=== PATIENT | female | born 1995 | race Caucasian/White ===

== ENCOUNTER 2017-01-02 04:21 | Inpatient (IN) ==
[2017-01-02] MEDS ORDERED: MAG-AL + SIM ORAL LIQUID 30ml PO PRN (06:20)
[2017-01-02] MEDS ORDERED: CALCIUM CARBONATE Chewable 500mg TABLET PO PRN (06:20)
[2017-01-02] MEDS ORDERED: CARBOPROST 250 MCG/ML INJECTION IM PRN (06:20)
[2017-01-02] MEDS ORDERED: OXYTOCIN DRIP 30 UNIT/500 ML ML IV PRN (06:20)
[2017-01-02] MEDS ORDERED: LIDOCAINE 1% (10mg/ml) 2mL INJ PF SDV ID PRN (06:20)
[2017-01-02] MEDS ORDERED: METHYLERGONOVINE 0.2 MG/ML INJECTION IM PRN (06:20)
[2017-01-02] MEDS ORDERED: ACETAMINOPHEN 500 MG TABLET PO PRN (06:20)
[2017-01-02] MEDS: LR 1,000 ML IV PRN ×2 (06:30→12:42)
[2017-01-02 07:00] VITALS: BP 118/70; PULSE 71; RESP 16; TEMP 98.8; O2SAT 99
[2017-01-02] MEDS: D5LR 1,000 ML IV PRN ×2 (07:13→15:39)
[2017-01-02 07:17] VITALS: BMI 32.1
--- NOTE | 2017-01-02 09:11 | Anesthesia Preoperative Report ---
Anesthesia Epidural/Spinal Rec - Date and Time Date: 01/02/17 Preoperative Diagnosis: term induction Procedure: Labor Epidural Plan: Epidural - Vital Signs Vital Signs: Temperature 98.8 F 01/02/17 06:30 Pulse Rate 71 01/02/17 06:30 Respiratory Rate 16 01/02/17 06:30 Blood Pressure 118/70 01/02/17 06:30 Pulse Oximetry 99 01/02/17 06:30 Oxygen Delivery Method Room Air /Para: P:0 Heart Rate: 150 - Medictaions & Allergies Inpatient Medications: Current Medications Acetaminophen (Tylenol) 500 - 1,000 mg PO Q4H PRN PRN Reason: Pain Al Hydroxide/Mg Hydroxide (Maalox Plus) 30 ml PO Q3H PRN PRN Reason: Indigestion Calcium Carbonate (Tums) 500 - 1,000 mg PO Q2H PRN PRN Reason: Indigestion Carboprost Tromethamine (Hemabate) 250 mcg IM O PRN PRN Reason: .Downtime Dextrose/Lactated Ringer's (Dextrose 5%-Lactated Ringers) 1,000 mls @ 125 mls/ hr IV .Q8H PRN PRN Reason: Labor Last Admin: 01/02/17 07:13 Dose: 125 mls/hr Lactated Ringer's (Lactated Ringers) 1,000 mls @ 1,000 mls/hr IV .Q1H PRN PRN Reason: as directed Last Admin: 01/02/17 06:30 Dose: 1,000 mls/hr Oxytocin (Pitocin Drip) 30 unit in 500 mls @ 2 mls/hr IV .Q24H PRN; Protocol PRN Reason: Induction/Augmentation Last Admin: 01/02/17 07:00 Dose: 2 mls/hr Lidocaine HCl (Xylocaine-Mpf 1% Vial) 0.2 mg ID O PRN PRN Reason: IV Start Methylergonovine Maleate (Methergine) 0.2 mg IM O PRN Misoprostol (Cytotec) 800 mcg IN ONCE PRN Allergies/Adverse Reactions: Allergies Allergy/AdvReac Type Severity Reaction Status Date / Time diphenhydramine Allergy Mild Hives Verified 12/16/16 10:50 Penicillins Allergy Mild Hives Verified 12/16/16 10:50 - Home Medications Home Medications: Home Medications Medication Instructions Recorded Confirmed Type Vitamins 12/16/16 History - Medical History Respiratory: Reports: Asthma (exercise induced) Other History: Reports: Now - Surgical History Anesthesia Reactions: None Hx Family Anesthesia Reaction: No History of Motion Sickness: No - Social History Smoking Status: Never smoker Second Hand Exposure: No Substance Use Type: does not use Alcohol Intake: never Alcohol Intake Frequency: does not drink Hx Chewing Tobacco Use: No - Pertinent Findings Lab Data: CBC and BMP 01/02/17 06:34 - Physical Exam Respiratory Exam: lungs clear, bilateral breath sounds equal Cardiovascular Exam: regular rate and rhythm, no murmur - Airway Assessment Mallampati Score: I TMD: 3 Fingerbreadths Neck Extension: good Overall Assessment: may be difficult intubation - ASA ASA Score: 2 - Discussion Discussion: Discussed risks/options/alternatives of anesthesia and questions answered. Patient consents. Nursing pain assessment noted. Attestation Statement: Prior to the delivery of any anesthetic medication, I examined the patient, developed the plan, obtained the patient's consent and discussed the risk and benefits of the procedure with the patient/guardian.
--- NOTE | 2017-01-02 16:28 | Progress Note ---
OB PP Progress Note Free Text - Date Date: 01/02/17 - Progress Note Progress Note: Cervix remains unchanged. I have been unable to AROM, unable to place Ascencio bulb for cervical ripening. FHTs remain reactive. We've discussed the options at this point. We can either continue oxytocin induction or stop and await spontaneous labor. If no change after 12 hours of induction, I would plan to stop and send her home. Pt has decided to go home now. Will follow in the office next week. Precautions reviewed.
--- NOTE | 2017-01-02 16:30 | Discharge Instructions ---
Discharge Plan - Med Rec/Dispo Prescriptions: No Action Vitamins - Disposition 01 Discharged Home, Self-Care
== END 2017-01-02 17:41 | disposition home or self-care (01) | DRG 782 ==
LOC: MC 06:15 → UNDODISIN 17:02
PROVIDERS: ADMIT Obstetrics & Gynecology; ATTEND Obstetrics & Gynecology

== ENCOUNTER 2017-01-11 17:08 | Inpatient (IN) ==
[2017-01-11] MEDS ORDERED: MAG-AL + SIM ORAL LIQUID 30ml PO PRN ×2 (17:22→22:30)
[2017-01-11] MEDS ORDERED: METHYLERGONOVINE 0.2 MG/ML INJECTION IM PRN ×2 (17:22→22:30)
[2017-01-11] MEDS ORDERED: CARBOPROST 250 MCG/ML INJECTION IM PRN ×2 (17:22→22:30)
[2017-01-11] MEDS ORDERED: DINOPROSTONE 10 MG VAGINAL INSERT VG ONE (17:22)
[2017-01-11] MEDS ORDERED: ACETAMINOPHEN 500 MG TABLET PO PRN ×2 (17:22→22:30)
[2017-01-11] MEDS ORDERED: SALINE FLUSH 10ml SYRINGE IVF PRN (17:22)
[2017-01-11] MEDS ORDERED: CALCIUM CARBONATE Chewable 500mg TABLET PO PRN ×2 (17:22→22:30)
[2017-01-11] MEDS ORDERED: TERBUTALINE 1 MG/ML VIAL SQ PRN (17:22)
[2017-01-11 17:45] VITALS: BMI 70.4
[2017-01-11] MEDS: NALBUPHINE 10 MG/ML INJECTION IVP PRN (22:44)
[2017-01-11] MEDS: LR 1,000 ML IV PRN (22:45)
[2017-01-12] MEDS: LR 1,000 ML IV PRN ×2 (01:46→04:00)
[2017-01-12 01:51] VITALS: RESP 16
[2017-01-12] MEDS: NALBUPHINE 10 MG/ML INJECTION IVP PRN (01:59)
[2017-01-12] MEDS ORDERED: D5LR 1,000 ML IV PRN (06:00)
[2017-01-12] MEDS ORDERED: ROPIVACAINE 1% 10MG/ML INJ 200 MG, SUFentanil 50 MCG in NS 80 ML EPI PRN (06:00)
[2017-01-12] MEDS ORDERED: OXYTOCIN DRIP 30 UNIT/500 ML ML IV PRN (06:00)
--- NOTE | 2017-01-12 06:43 | Anesthesia Preoperative Report ---
Anesthesia Epidural/Spinal Rec - Date and Time Date: 01/12/17 Procedure: Labor Epidural Plan: Epidural - Vital Signs Vital Signs: Temperature 97.7 F 01/12/17 00:00 Pulse Rate 78 01/12/17 00:00 Respiratory Rate 16 01/12/17 00:00 Blood Pressure 108/61 01/12/17 00:00 Pulse Oximetry 98 01/12/17 00:00 Oxygen Delivery Method Room Air /Para: P:0 - Medictaions & Allergies Inpatient Medications: Current Medications Acetaminophen (Tylenol) 500 - 1,000 mg PO Q4H PRN PRN Reason: Pain Al Hydroxide/Mg Hydroxide (Maalox Plus) 30 ml PO Q3H PRN PRN Reason: Indigestion Calcium Carbonate (Tums) 500 - 1,000 mg PO Q2H PRN PRN Reason: Indigestion Carboprost Tromethamine (Hemabate) 250 mcg IM O PRN PRN Reason: .Downtime Lactated Ringer's (Lactated Ringers) 1,000 mls @ 1,000 mls/hr IV .Q1H PRN PRN Reason: as directed Last Admin: 01/12/17 01:46 Dose: 1,000 mls/hr Dextrose/Lactated Ringer's (Dextrose 5%-Lactated Ringers) 1,000 mls @ 125 mls/ hr IV .Q8H PRN PRN Reason: Labor Oxytocin (Pitocin Drip) 30 unit in 500 mls @ 2 mls/hr IV .Q24H PRN; Protocol PRN Reason: Induction/Augmentation Methylergonovine Maleate (Methergine) 0.2 mg IM O PRN Misoprostol (Cytotec) 800 mcg AL ONCE PRN Nalbuphine HCl (Nubain) 5 - 10 mg IVP Q1H PRN Last Admin: 01/12/17 01:59 Dose: 10 mg Sodium Chloride (Iv Flush) 10 - 80 ml IVF PRN PRN PRN Reason: Flushing Last Admin: 01/11/17 18:00 Dose: 10 ml Terbutaline Sulfate (Brethine) 0.25 mg SQ PRN PRN Allergies/Adverse Reactions: Allergies Allergy/AdvReac Type Severity Reaction Status Date / Time diphenhydramine Allergy Mild Hives Verified 12/16/16 10:50 Penicillins Allergy Mild Hives Verified 12/16/16 10:50 - Home Medications Home Medications: Home Medications Medication Instructions Recorded Confirmed Type Vitamins 12/16/16 History - Medical History Gastrointestional: Reports: Morbid Obesity (obese) - Surgical History Anesthesia Reactions: None Hx Family Anesthesia Reaction: No History of Motion Sickness: No - Social History Second Hand Exposure: No Substance Use Type: does not use Alcohol Intake Frequency: does not drink Hx Chewing Tobacco Use: No - Pertinent Findings Lab Data: CBC and BMP 01/11/17 17:39 - Physical Exam Respiratory Exam: lungs clear Cardiovascular Exam: regular rate and rhythm - Airway Assessment Mallampati Score: I TMD: 3 Fingerbreadths Neck Extension: good Overall Assessment: no airway concerns - ASA ASA Score: 2 - Discussion Discussion: Discussed risks/options/alternatives of anesthesia and questions answered. Patient consents. Nursing pain assessment noted. Anesthesia Discussion: family member Attestation Statement: Prior to the delivery of any anesthetic medication, I examined the patient, developed the plan, obtained the patient's consent and discussed the risk and benefits of the procedure with the patient/guardian.
[2017-01-12] MEDS ORDERED: TRANEXAMIC ACID 1,000 MG in NS 100 ML IV ONE (07:44)
[2017-01-12] MEDS ORDERED: CLINDAMYCIN PB 900 MG/50 ML BAG IV SCH (08:15)
[2017-01-12] MEDS ORDERED: ONDANSETRON 4 MG/2 ML INJECTION IVP PRN (08:26)
[2017-01-12] MEDS ORDERED: OXYTOCIN DRIP 30 UNIT/500 ML ML IV SCH (08:39)
[2017-01-12] MEDS ORDERED: SALINE FLUSH 10ml SYRINGE IVF PRN (08:39)
[2017-01-12] MEDS ORDERED: DiphenhydrAMINE 25 MG CAPSULE PO PRN (08:39)
[2017-01-12] MEDS ORDERED: ACETAMINOPHEN 500 MG TABLET PO PRN (08:39)
[2017-01-12] MEDS ORDERED: MAG-AL + SIM ORAL LIQUID 30ml PO PRN (08:39)
[2017-01-12] MEDS ORDERED: CALCIUM CARBONATE Chewable 500mg TABLET PO PRN (08:39)
[2017-01-12] MEDS ORDERED: HYDROCORTISONE 2.5% CREAM 30gm RECTALLY PRN (08:39)
[2017-01-12] MEDS: IBUPROFEN 800 MG TABLET PO SCH ×2 (09:45→17:27)
[2017-01-12] MEDS: DOCUSATE CALCIUM 240 MG CAPSULE PO SCH (09:46)
--- NOTE | 2017-01-12 14:38 | Anesthesia Postoperative Note ---
- Date and Time Date: 01/12/17 Time: 14:37 - Status Patient Participated in Evaluation: Patient Participated in Person Vital Signs: Temperature 97.7 F 01/12/17 00:00 Pulse Rate 78 01/12/17 00:00 Respiratory Rate 16 01/12/17 00:00 Blood Pressure 108/61 01/12/17 00:00 Pulse Oximetry 98 01/12/17 00:00 Oxygen Delivery Method Room Air Respiratory Function: Airway Patent, Irregular Respirations Cardiovascular Function: Regular Pulse EKG Rhythm: Normal Sinus Rhythm Mental Status: Alert and Oriented Pain Intensity: 0 Hydration: Taking PO Fluids Complications During Recover: None Apparent - Follow-Up Instructions Instructions: Per Surgeon
--- NOTE | 2017-01-12 14:50 | Labor and Delivery Note ---
Date of Delivery: 01/12/2017 BRIEF DESCRIPTION Ms. Miller progressed very well with Cervidil cervical ripening. She began to push with excellent effort. heart tones were not reactive. She began to develop repetitive late decelerations. Dr. Cruz had been with her in labor and then I took over as soon as I arrived. She was complete and +2 at that time. Baby recovered nicely between contractions. However, she began to have worsening decels. At this point I recommended we use the vacuum extractor to help with delivery. We reviewed the risks of that and patient agreed to the procedure. She was complete, +3 when the vacuum was applied. Over the course of one pull and one contraction she delivered the head in the OA presentation. The vacuum was removed. There was no evidence of nuchal cord. Baby was bulb suctioned on the perineum. With a further push baby was delivered in total. Baby was then further bulb suctioned and placed on mother' s abdomen. After a little over 2 minutes the cord was doubly clamped and cut. This was a liveborn female with Apgars of 8/9. The placenta delivered within a few moments spontaneously intact. It had a normal configuration and a normal- appearing three-vessel cord. However the patient's uterus initially did not contract well. The RN provided fundal massage very ably. I performed a manual exam. There was no evidence of further placenta. We gave subcutaneous Methergine and tranexamic acid. The bleeding did resolve within a few moments. Total blood loss was approximately 700 cc. There was a second-degree laceration that was slightly irregular. It was repaired with a 2-0 Vicryl. Total blood loss approximately 700 cc. At the time of this dictation mother and baby are doing well [facility]
[2017-01-12] MEDS: HYDROCODONE/APAP 5mg/325mg TABLET PO PRN ×2 (21:53→23:44)
[2017-01-13] MEDS: IBUPROFEN 800 MG TABLET PO SCH ×3 (01:40→16:39)
[2017-01-13] MEDS: DOCUSATE CALCIUM 240 MG CAPSULE PO SCH ×2 (07:48→12:08)
--- NOTE | 2017-01-13 08:12 | OB/GYN Progress Note ---
OB-PP Progress Note - General PPD1 Maternal Group B Strep: Negative Maternal blood type: A+ - Subjective Date: 01/13/17 Lochia: Minimal Pain: contolled Voiding: voiding Nausea or Vomiting Present: No - Objective Vital Signs: Last Vital Signs Temp 97.9 F 01/13/17 07:45 Pulse 86 01/13/17 07:45 Resp 16 01/13/17 07:45 BP 109/57 01/13/17 07:45 Pulse Ox 98 01/13/17 07:45 General: alert and oriented Abdomen: fundus firm, non-tender Edema: none - Assessment Assessment: SPNELDA - Plan Plan: routine care Expected date of discharge: 01/14/17
[2017-01-13] MEDS: PRENATAL VITAMIN TABLET PO SCH (12:11)
[2017-01-13] MEDS: HYDROCODONE/APAP 5mg/325mg TABLET PO PRN (14:38)
[2017-01-14 01:38] VITALS: TEMP 98.1
[2017-01-14] MEDS: IBUPROFEN 800 MG TABLET PO SCH ×2 (02:31→09:10)
--- NOTE | 2017-01-14 08:19 | OB/GYN Progress Note ---
OB-PP Progress Note - General PPD1, PPD2 Weeks: 41 Days: 1 Maternal Group B Strep: Negative Maternal blood type: A+ Maternal Rubella Status: Immune - Subjective Date: 01/14/17 Lochia: Minimal Pain: contolled Voiding: voiding - Objective Vital Signs: Last Vital Signs Temp 98.1 F 01/14/17 01:36 Pulse 72 01/14/17 01:36 Resp 16 01/14/17 01:36 BP 107/56 01/14/17 01:36 Pulse Ox 99 01/13/17 16:30 Urine Output: good General: alert and oriented Respiratory: non-labored Abdomen: fundus firm Extremities: non-tender Edema: none - Assessment Assessment: SP, - Plan Plan: routine care, discharge home Expected date of discharge: 01/14/17
--- NOTE | 2017-01-14 08:23 | Discharge Instructions ---
Discharge Plan - Med Rec/Dispo Prescriptions: New Ibuprofen [Motrin] 800 mg PO Q8H #50 tablet Hydrocodone/APAP 5/325 [[place] 5/325] 1 - 2 tab PO Q4H PRN #30 tablet PRN Reason: Pain No Action Vitamins
[2017-01-14 09:17] VITALS: BP 123/67; PULSE 91; O2SAT 95
[2017-01-14] MEDS: DOCUSATE CALCIUM 240 MG CAPSULE PO SCH (10:56)
[2017-01-14] MEDS: PRENATAL VITAMIN TABLET PO SCH (10:56)
== END 2017-01-14 13:13 | disposition home or self-care (01) | DRG 774 ==
LOC: MC 17:08
PROVIDERS: ADMIT Obstetrics & Gynecology; ATTEND Obstetrics & Gynecology